=== PATIENT | female | born 2000 | race African-American/Black ===

== ENCOUNTER 2020-09-04 18:12 | Inpatient (IN) | payer BC, OTHER, SELFPAY ==
[2020-09-04] MEDS ORDERED: dexAMETHasone 20 MG/5 ML VIAL IV ONE (18:31)
[2020-09-04] MEDS ORDERED: IPRATROPIUM/ALBUTEROL SULFATE 3 ML AMPUL.NEB IH ONE (18:31)
--- NOTE | 2020-09-04 18:36 | Emergency Department Report ---
ED General Adult HPI - General Chief complaint: Dyspnea/Respdistress Stated complaint: ASTHMA Time Seen by Provider: 09/04/20 18:31 Source: patient Mode of arrival: Ambulatory Limitations: No Limitations - History of Present Illness Initial comments: Patient is a 19-year-old female with history of asthma who presents for cough and shortness of breath x2 days. Patient states she is out of the medication bought [id number] Primatene Mist. Symptoms rated at 5/10 at this time. There has been no fever, chills, dizziness, lightheadedness no chest pain no nausea vomiting. Symptoms are exacerbated by environmental exposure and activity. Symptoms are relieved by nothing. Patient did drive self to ED and ambulated into ED to room. Patient states audible wheezing was triggered to present to ED this evening. - Related Data Previous Rx's Medication Instructions Recorded Last Taken Type EPINEPHrine [Epipen 2-Wilbert] 0.3 mg IJ PRN #1 ml 03/03/14 Unknown Rx Albuterol Sulfate [Ventolin HFA] 2 puff IH Q4H PRN 30 Days 05/10/14 Unknown Rx [email or web address] Albuterol Mdi (or & Nicu Only) 2 puff IH QID PRN #8.5 gram 09/04/20 Unknown Rx [ProAir HFA Inhaler] dexAMETHasone [Decadron] 4 mg PO BID 2 Days #4 tablet 09/04/20 Unknown Rx Allergies Allergy/AdvReac Type Severity Reaction Status Date / Time peanut Allergy Unknown Verified 03/02/14 23:17 ED Review of Systems ROS: Stated complaint: ASTHMA Other details as noted in HPI Constitutional: denies: chills, fever Eyes: denies: eye pain, eye discharge, vision change ENT: congestion. denies: ear pain, throat pain Respiratory: cough, shortness of breath, wheezing Cardiovascular: denies: chest pain, palpitations Endocrine: no symptoms reported Gastrointestinal: denies: abdominal pain, nausea, vomiting, diarrhea Genitourinary: denies: urgency, dysuria, discharge Musculoskeletal: denies: back pain, joint swelling, arthralgia Skin: denies: rash, lesions Neurological: denies: headache, weakness, paresthesias Psychiatric: denies: anxiety, depression Hematological/Lymphatic: denies: easy bleeding, easy bruising ED Past Medical Hx - Past Medical History Previous Medical History?: Yes Hx CVA: No Hx Congestive Heart Failure: No Hx Deep Vein Thrombosis: No Hx Liver Disease: No Hx Renal Disease: No Hx Sickle Cell Disease: No Hx Asthma: Yes - Surgical History Past Surgical History?: No - Social History Smoking Status: Never Smoker Substance Use Type: None - Medications Home Medications: Home Medications Medication Instructions Recorded Confirmed Last Taken Type EPINEPHrine [Epipen 2-Wilbert] 0.3 mg IJ PRN #1 ml 03/03/14 05/10/14 Unknown Rx Albuterol Sulfate [Ventolin HFA] 2 puff IH Q4H PRN 30 Days 05/10/14 Unknown Rx [email or web address] Albuterol Mdi (or & Nicu Only) 2 puff IH QID PRN #8.5 gram 09/04/20 Unknown Rx [ProAir HFA Inhaler] dexAMETHasone [Decadron] 4 mg PO BID 2 Days #4 tablet 09/04/20 Unknown Rx ED Physical Exam - General Limitations: No Limitations General appearance: alert, in no apparent distress - Head Head exam: Present: atraumatic, normocephalic - Eye Eye exam: Present: normal appearance, EOMI Pupils: Present: normal accommodation - ENT ENT exam: Present: normal orophraynx, mucous membranes moist - Neck Neck exam: Present: normal inspection, full ROM. Absent: tenderness, lymphadenopathy - Respiratory Respiratory exam: Present: wheezes, chest wall tenderness (right anterior later al chest wall tenderness , no erythema no crepitus, no stepoff ). Absent: rales, rhonchi, stridor - Expanded Respiratory Exam Expanded Location: Wheezes: Right, Left, Upper - Cardiovascular Cardiovascular Exam: Present: regular rate, normal rhythm. Absent: systolic murmur, diastolic murmur, rubs, gallop - GI/Abdominal GI/Abdominal exam: Present: soft, normal bowel sounds. Absent: distended, tenderness, bruit, hernia - Rectal Rectal exam: Present: deferred - Extremities Exam Extremities exam: Present: normal inspection, full ROM. Absent: tenderness - Back Exam Back exam: Present: normal inspection, full ROM. Absent: tenderness, CVA tenderness (R), CVA tenderness (L) - Neurological Exam Neurological exam: Present: alert, oriented X3, CN II-XII intact, normal gait - Psychiatric Psychiatric exam: Present: normal affect, normal mood - Skin Skin exam: Present: warm, dry, intact, normal color. Absent: rash ED Course Vital Signs 09/04/20 09/04/20 09/04/20 18:24 18:49 20:14 Temperature 98.3 F Pulse Rate 130 H 93 H Pulse Rate [ 121 H Bilateral] Respiratory 20 24 Rate Respiratory 22 Rate [Bilateral ] Blood Pressure 183/112 O2 Sat by Pulse 84 100 Oximetry ED Medical Decision Making - Radiology Data Radiology results: report reviewed, image reviewed Findings Reporting MD: Yan Gorman Dictation Time: September 04, 2020 18:47 Gambreler: Not available Forwarder Operator Date: XR chest 1V ap INDICATION / CLINICAL INFORMATION: sob wheezing productive cough. COMPARISON: None available. FINDINGS: SUPPORT DEVICES: None. HEART /PULMONARY VASCULATURE: No significant abnormality. LUNGS / PLEURA: No significant pulmonary or pleural abnormality. No pneumothorax. ADDITIONAL FINDINGS: No significant additional findings. IMPRESSION: 1. No acute findings. Signer Name: Yan Gorman MD Signed: 09/04/2020 6:47 PM Workstation Name: [id number] - Medical Decision Making Chest x-ray no infiltrates no opacities, wheezing is resolved, symptoms improved with medications given in ED. Patient is ambulatory from room to bathroom back to room without increased shortness of breath or wheezing. Patient states breathing is at baseline at this time. Plan refill albuterol, prednisone, DC to home follow-up with PCP in 2 to 3 days. Pt verbalized agreement and understanding of discharge plan. Critical care attestation.: If time is entered above; I have spent that time in minutes in the direct care of this critically ill patient, excluding procedure time. ED Disposition Clinical Impression: Asthma Qualifiers: Asthma severity: moderate Asthma persistence: unspecified Asthma complication type: uncomplicated Qualified Code(s): J45.909 - Unspecified asthma, uncomplicated Disposition: DC-01 TO HOME OR SELFCARE Is pt being admited?: No Does the pt Need Aspirin: No Condition: Stable Instructions: Asthma, Adult, Asthma (ED) Prescriptions: dexAMETHasone [Decadron] 4 mg PO BID 2 Days #4 tablet Albuterol Mdi (or & Nicu Only) [ProAir HFA Inhaler] 2 puff IH QID PRN #8.5 gram PRN Reason: Shortness Of Breath Referrals: VINITA CONNELL MD [Staff Physician] - 3-5 Days Forms: Work/School Release Form(ED) Time of Disposition: 21:14
[2020-09-04] MEDS ORDERED: ALBUTEROL 2.5 MG/3 ML NEBU IH ONE ×2 (19:48)
[2020-09-04] MEDS ORDERED: ACETAMINOPHEN W/CODEINE 300-30 MG TAB PO ONE (19:48)
--- NOTE | 2020-09-04 19:52 | XRay Report ---
XR chest 1V ap INDICATION / CLINICAL INFORMATION: sob wheezing productive cough. COMPARISON: None available. FINDINGS: SUPPORT DEVICES: None. HEART /PULMONARY VASCULATURE: No significant abnormality. LUNGS / PLEURA: No significant pulmonary or pleural abnormality. No pneumothorax. ADDITIONAL FINDINGS: No significant additional findings. IMPRESSION: 1. No acute findings. Signer Name: Yan Gorman MD Signed: 09/04/2020 7:47 PM Workstation Name: [id number]
[2020-09-04] MEDS ORDERED: SODIUM CHLORIDE 0.9% 1000 ML 1,000 ML IV ONE (22:28)
[2020-09-04] MEDS ORDERED: cefTRIAXone/NS 1 GM/50 ML 1 GM/50 ML BAG IV ONE (22:28)
[2020-09-04] MEDS ORDERED: MAGNESIUM SULFATE 2 GM/50 ML BAG IV ONE (22:32)
--- NOTE | 2020-09-04 22:45 | Emergency Department Report ---
ED General Adult HPI - General Chief complaint: Dyspnea/Respdistress Stated complaint: ASTHMA Time Seen by Provider: 09/04/20 18:31 Source: patient Mode of arrival: Ambulatory Limitations: No Limitations - History of Present Illness Initial comments: Patient is a 19-year-old female with history of asthma who presents for cough and shortness of breath x2 days. Patient states she is out of the medication bought [id number] Primatene Mist. Symptoms rated at 5/10 at this time. There has been no fever, chills, dizziness, lightheadedness no chest pain no nausea vomiting. Symptoms are exacerbated by environmental exposure and activity. Symptoms are relieved by nothing. Patient did drive self to ED and ambulated into ED to room. Patient states audible wheezing was triggered to present to ED this evening. Severity scale (0 -10): 3 - Related Data Previous Rx's Medication Instructions Recorded Last Taken Type EPINEPHrine [Epipen 2-Wilbert] 0.3 mg IJ PRN #1 ml 03/03/14 Unknown Rx Albuterol Sulfate [Ventolin HFA] 2 puff IH Q4H PRN 30 Days 05/10/14 Unknown Rx [email or web address].ad Allergies Allergy/AdvReac Type Severity Reaction Status Date / Time peanut Allergy Unknown Verified 03/02/14 23:17 ED Review of Systems ROS: Stated complaint: ASTHMA Other details as noted in HPI Constitutional: denies: chills, fever Eyes: denies: eye pain, eye discharge, vision change ENT: congestion. denies: ear pain, throat pain Respiratory: cough, shortness of breath, wheezing. denies: stridor Cardiovascular: denies: chest pain, palpitations Endocrine: no symptoms reported Gastrointestinal: denies: abdominal pain, nausea, vomiting, diarrhea Genitourinary: denies: urgency, dysuria, discharge Musculoskeletal: denies: back pain, joint swelling, arthralgia Skin: denies: rash, lesions Neurological: denies: headache, weakness, paresthesias Psychiatric: denies: anxiety, depression Hematological/Lymphatic: denies: easy bleeding, easy bruising ED Past Medical Hx - Past Medical History Previous Medical History?: Yes Hx CVA: No Hx Congestive Heart Failure: No Hx Deep Vein Thrombosis: No Hx Liver Disease: No Hx Renal Disease: No Hx Sickle Cell Disease: No Hx Asthma: Yes - Surgical History Past Surgical History?: No - Social History Smoking Status: Never Smoker Substance Use Type: None - Medications Home Medications: Home Medications Medication Instructions Recorded Confirmed Last Taken Type EPINEPHrine [Epipen 2-Wilbert] 0.3 mg IJ PRN #1 ml 03/03/14 05/10/14 Unknown Rx Albuterol Sulfate [Ventolin HFA] 2 puff IH Q4H PRN 30 Days 05/10/14 Unknown Rx hfa.[email or web address].ad ED Physical Exam - General Limitations: No Limitations General appearance: alert, in no apparent distress - Head Head exam: Present: atraumatic, normocephalic - Eye Eye exam: Present: normal appearance, EOMI Pupils: Present: normal accommodation - ENT ENT exam: Present: normal orophraynx, mucous membranes moist - Neck Neck exam: Present: normal inspection, full ROM. Absent: tenderness - Respiratory Respiratory exam: Present: wheezes, chest wall tenderness. Absent: respiratory distress, rales, rhonchi, stridor - Cardiovascular Cardiovascular Exam: Present: normal rhythm, tachycardia, normal heart sounds. Absent: systolic murmur, diastolic murmur, rubs, gallop - GI/Abdominal GI/Abdominal exam: Present: soft, normal bowel sounds. Absent: distended, tenderness, guarding, rebound, rigid, bruit, hernia - Rectal Rectal exam: Present: deferred - Extremities Exam Extremities exam: Present: normal inspection, full ROM, normal capillary refill. Absent: tenderness - Back Exam Back exam: Present: normal inspection, full ROM. Absent: tenderness, CVA tenderness (R), CVA tenderness (L) - Neurological Exam Neurological exam: Present: alert, oriented X3, CN II-XII intact, normal gait, reflexes normal - Expanded Neurological Exam Expanded Patient oriented to: Present: person, place, time Motor strength exam: RUE: 5, LUE: 5, RLE: 5, LLE: 5 Best Eye Response (Fox): (4) open spontaneously Best Motor Response ([place]): (6) obeys commands Best Verbal Response ([place]): (5) oriented [place] Total: 15 - Psychiatric Psychiatric exam: Present: normal affect - Skin Skin exam: Present: warm, dry, intact, normal color. Absent: rash ED Course Vital Signs 09/04/20 09/04/20 09/04/20 18:24 18:49 20:14 Temperature 98.3 F Pulse Rate 130 H 93 H Pulse Rate [ 121 H Bilateral] Respiratory 20 24 Rate Respiratory 22 Rate [Bilateral ] Blood Pressure 183/112 O2 Sat by Pulse 84 100 Oximetry 09/04/20 22:17 Temperature Pulse Rate 114 H Pulse Rate [ Bilateral] Respiratory 24 Rate Respiratory Rate [Bilateral ] Blood Pressure O2 Sat by Pulse 95 Oximetry ED Medical Decision Making - Lab Data Result diagrams: 09/04/20 22:34 09/04/20 22:34 Labs 09/04/20 09/04/20 09/04/20 22:34 22:34 22:34 WBC 16.2 H RBC 4.98 Hgb 14.6 H Hct 43.8 H MCV 88 MCH 29 MCHC 33 RDW 13.6 Plt Count 317 Lymph % (Auto) 7.8 L [place] % (Auto) 1.9 Eos % (Auto) 0.6 Baso % (Auto) 0.3 Lymph # (Auto) 1.3 [place] # (Auto) 0.3 Eos # (Auto) 0.1 Baso # (Auto) 0.0 Seg Neutrophils % 89.4 H Seg Neutrophils # 14.5 H D-Dimer 98.05 Sodium 138 Potassium 4.1 Chloride 98.2 Carbon Dioxide 24 Anion Gap 20 BUN 8 Creatinine 0.6 Estimated GFR > 60 BUN/Creatinine Ratio 13 Glucose 181 H Lactic Acid Calcium 9.4 Total Bilirubin 0.40 AST 24 ALT 36 Alkaline Phosphatase 101 Total Protein 8.2 Albumin 4.4 Albumin/Globulin Ratio 1.2 Urine Color Urine Turbidity Urine pH Ur Specific [place] Urine Protein Urine Glucose (UA) Urine Ketones Urine Blood Urine Nitrite Urine Bilirubin Urine Urobilinogen Ur Leukocyte Esterase Urine WBC (Auto) Urine RBC (Auto) U Epithel Cells (Auto) Urine Mucus Urine HCG, Qual 09/04/20 09/04/20 22:34 23:02 WBC RBC Hgb Hct MCV MCH MCHC RDW Plt Count Lymph % (Auto) [place] % (Auto) Eos % (Auto) Baso % (Auto) Lymph # (Auto) [place] # (Auto) Eos # (Auto) Baso # (Auto) Seg Neutrophils % Seg Neutrophils # D-Dimer Sodium Potassium Chloride Carbon Dioxide Anion Gap BUN Creatinine Estimated GFR BUN/Creatinine Ratio Glucose Lactic Acid 4.50 H* Calcium Total Bilirubin AST ALT Alkaline Phosphatase Total Protein Albumin Albumin/Globulin Ratio Urine Color Yellow Urine Turbidity Clear Urine pH 6.0 Ur Specific [place] 1.029 Urine Protein 30 mg/dl Urine Glucose (UA) Neg Urine Ketones Tr Urine Blood Neg Urine Nitrite Neg Urine Bilirubin Neg Urine Urobilinogen < 2.0 Ur Leukocyte Esterase Sm Urine WBC (Auto) 11.0 H Urine RBC (Auto) 4.0 U Epithel Cells (Auto) 6.0 Urine Mucus 2+ Urine HCG, Qual Negative - Radiology Data Radiology results: report reviewed, image reviewed Findings Reporting MD: Yan Gorman Dictation Time: September 04, 2020 18:47 Tra nscriptionist: Not available Fumigator And Sterilizer Date: XR chest 1V ap INDICATION / CLINICAL INFORMATION: sob wheezing productive cough. COMPARISON: None available. FINDINGS: SUPPORT DEVICES: None. HEART /PULMONARY VASCULATURE: No significant abnormality. LUNGS / PLEURA: No significant pulmonary or pleural abnormality. No pneumothorax. ADDITIONAL FINDINGS: No significant additional findings. IMPRESSION: 1. No acute findings. Signer Name: Yan Gorman MD Signed: 09/04/2020 6:47 PM Workstation Name: [id number] Findings Reporting MD: Chaz Amaral Dictation Time: September 05, 2020 00:19 Senior Managing Director: Not available Fumigator And Sterilizer Date: CTA chest with contrast INDICATION : P.E. PROTOCOL!!! Pt complains of shortness of breath. TECHNIQUE: Axial imaging performed through the chest, with contrast bolus timing set to maximize opacification of the pulmonary arteries. 3-plane MIP reformatted images were obtained. All CT scans at this location are performed using CT dose reduction for ALARA by means of automated exposure control. 100 mL of intravenous contrast administered. COMPARISON: FINDINGS: Bolus: Poor contrast bolus timing. PTE: No obvious central filling defect. Remaining branches are poorly evaluated given bolus timing. Mediastinum: Heart and great vessels appear normal. No pathologic mediastinal adenopathy. Lungs: There is streaky airspace disease in the lung bases, medial right middle lobe, and right greater than left upper lobes. No pleural effusion. Upper abdomen: Limited imaging of the upper abdomen shows nothing acute. Bones: No acute osseous abnormality. IMPRESSION: 1. Poor contrast bolus timing as outlined above with no large central PTE. 2. Multifocal streaky airspace disease is nonspecific but could be seen with an atypical infectious/inflammatory etiology. No pleural effusion. Signer Name: Chaz Amaral MD Signed: 09/05/2020 12:19 AM Workstation Name: [id number] - Medical Decision Making Chest x-ray no infiltrates no opacities, wheezing persistant, O2 sat is 89% room air, 98 % with 2 L/NC, medications given in ED: jody neb x 2, Albuterol, de cadron, magnesium, rocephin, NS x 1 liter, Patient is ambulatory from room to bathroom back to room with increased shortness of breath or wheezing. Patient states breathing is much improved at this time, however O2 sat is not improved, D-Dimer 95, WBC: 16.3, Lactic Acid is 4.5, lungs sounds bilat exp wheezes, Plan: consult hospitalist for admission Dx: Asthma Exacerbation, Recomendation CTA Chest r/o PE, Covid 19, will call back after result for admission or dispositions. Discussed tx plan with patient, although she previously declined admission, she is will to stay for tx at this time. 1241: CTA Chest : 1. Poor contrast bolus timing as outlined above with no large central PTE. 2. Multifocal streaky airspace disease is nonspecific but could be seen with an atypical infectious/inflammatory etiology. No pleural effusion. Plan: admit to hospitalist, Dx. Bilat Pnuemonia, Asthma e xacerbation, Lactic Acidosis, suspected COVID 19, discussed tx plan with patient , patient verbalized agreement and understanding of same. Critical care attestation.: If time is entered above; I have spent that time in minutes in the direct care of this critically ill patient, excluding procedure time. ED Disposition Clinical Impression: Lactic acidosis, Suspected COVID-19 virus infection Asthma Qualifiers: Asthma severity: moderate Asthma persistence: unspecified Asthma complication type: uncomplicated Qualified Code(s): J45.909 - Unspecified asthma, uncomplicated Pneumonia of both lower lobes Qualifiers: Pneumonia type: due to unspecified organism Qualified Code(s): J18.9 - Pneumonia, unspecified organism Disposition: OP ADMIT IP TO THIS HOSP Is pt being admited?: Yes Does the pt Need Aspirin: No Condition: Stable Instructions: Asthma, Adult, Asthma (ED), Bacterial Pneumonia (ED)
[2020-09-04 23:12] LABS: Basophils % (Auto) 0.3 % (0.0-1.8); Eosinophils # (Auto) 0.1 K/mm3 (0.0-0.4); Eosinophils % (Auto) 0.6 % (0.0-4.3); Hematocrit 43.8 % (30.3-42.9); Hemoglobin 14.6 gm/dl (10.1-14.3); Lymphocytes # (Auto) 1.3 K/mm3 (1.2-5.4); Lymphocytes % (Auto) 7.8 % (13.4-35.0); Mean Corpuscular HGB Conc 33 % (30-34); Mean Corpuscular Volume 88 fl (79-97); Monocytes # (Auto) 0.3 K/mm3 (0.0-0.8); Monocytes % (Auto) 1.9 % (0.0-7.3); Platelet Count 317 K/mm3 (140-440); Red Blood Count 4.98 M/mm3 (3.65-5.03); Red Cell Distribution Width 13.6 % (13.2-15.2)
[2020-09-04 23:36] LABS: Bilirubin,Urine NEG (Negative); Blood,Urine NEG (Negative); Color,Urine Yellow (Yellow); Mucus,Urine 2+ /HPF; Urobilinogen,Urine < 2.0 mg/dL (<2.0)
[2020-09-04 23:42] LABS: HCG Qualitative,Urine Negative (Negative)
[2020-09-04 23:50] LABS: Alanine Aminotransferase 36 units/L (7-56); Albumin 4.4 g/dL (3.9-5); Blood Urea Nitrogen 8 mg/dL (7-17); Calcium 9.4 mg/dL (8.4-10.2); Hemolysis Index 13
[2020-09-04 23:54] LABS: BUN/Creatinine Ratio 13
[2020-09-05] MEDS ORDERED: IPRATROPIUM/ALBUTEROL SULFATE 3 ML AMPUL.NEB IH ONE ×4 (00:07→20:24)
--- NOTE | 2020-09-05 01:24 | Cat Scan Report ---
CTA chest with contrast INDICATION : P.E. PROTOCOL!!! Pt complains of shortness of breath. TECHNIQUE: Axial imaging performed through the chest, with contrast bolus timing set to maximize opa cification of the pulmonary arteries. 3-plane MIP reformatted images were obtained. All CT scans at this location are performed using CT dose reduction for ALARA by means of automated exposure control. 100 mL of intravenous contrast administered. COMPARISON: FINDINGS: Bolus: Poor contrast bolus timing. PTE: No obvious central filling defect. Remaining branches are poorly evaluated given bolus timing. Mediastinum: Heart and great vessels appear normal. No pathologic mediastinal adenopathy. Lungs: There is streaky airspace disease in the lung bases, medial right middle lobe, and right grea ter than left upper lobes. No pleural effusion. Upper abdomen: Limited imaging of the upper abdomen shows nothing acute. Bones: No acute osseous abnormality. IMPRESSION: 1. Poor contrast bolus timing as outlined above with no large central PTE. 2. Multifocal streaky airspace disease is nonspecific but could be seen with an atypical infectious/i nflammatory etiology. No pleural effusion. Signer Name: Chaz Amaral MD Signed: 09/05/2020 1:19 AM Workstation Name: [id number]
[2020-09-05] MEDS ORDERED: ONDANSETRON 4 MG/2 ML INJ IV PRN (02:52)
[2020-09-05] MEDS ORDERED: MAGNESIUM HYDROXIDE (MOM) ORAL LIQD UDC PO PRN (02:52)
[2020-09-05] MEDS ORDERED: ACETAMINOPHEN 325 MG TAB PO PRN (02:52)
[2020-09-05] MEDS ORDERED: MORPHINE 2 MG/1 ML INJ IV PRN (02:52)
--- NOTE | 2020-09-05 03:02 | History and Physical Report ---
History of Present Illness Date of examination: 09/05/20 Date of admission: 09/05/20 02:35 Chief complaint: Shortness of Breath History of present illness: 19-year-old female with known history of asthma presenting to the emergency room today complaining of cough and shortness of breath which has been ongoing for about 2 days. 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 She however denies any sick contacts and no recent travel. Patient denies any fever or chills, no headache or dizziness, no chest pain, no nausea or vomiting. Upon arrival in the emergency room patient had audible wheezing and was in mild respiratory distress. She has had multiple rounds of nebulizing treatments wi thout any significant improvement. Work-up in the emergency room reveals lactic acidosis, leukocytosis, chest x-ray was concerning for a pneumonia. Patient started on empiric IV antibiotics and also placed on isolation precautions to rule out COVID-19. Past History Past Medical History: other (Asthma) Past Surgical History: No surgical history Social history: no significant social history Family history: no significant family history Medications and Allergies Allergies Allergy/AdvReac Type Severity Reaction Status Date / Time peanut Allergy Unknown Verified 03/02/14 23:17 Home Medications Medication Instructions Recorded Confirmed Last Taken Type EPINEPHrine [Epipen 2-Wilbert] 0.3 mg IJ PRN #1 ml 03/03/14 05/10/14 Unknown Rx Albuterol Sulfate [Ventolin HFA] 2 puff IH Q4H PRN 30 Days 05/10/14 Unknown Rx [email or web address] Active Meds: Active Medications Acetaminophen (Tylenol) 650 mg PO Q4H PRN PRN Reason: Pain MILD(1-3)/Fever >100.5/SHAH Albuterol/Ipratropium (Duoneb *Not For Prn Use*) 1 ampul IH Q6HRT DELMY Enoxaparin Sodium (Enoxaparin) 40 mg SUB-Q QDAY@2200 DELMY; Protocol Sodium Chloride (Nacl 0.9% 1000 Ml) 1,000 mls @ 100 mls/hr IV DIRECT DELMY Ceftriaxone Sodium (Rocephin/Ns 2 Gm/100 Ml) 2 gm in 100 mls @ 200 mls/hr IV Q24HR DELMY; Protocol Azithromycin 500 mg/ Sodium (Chloride) 250 mls @ 250 mls/hr IV Q24HR DELMY; Protocol Magnesium Hydroxide (Milk Of Magnesia) 30 ml PO Q4H PRN PRN Reason: Constipation Methylprednisolone Sodium Succinate (Solu-Medrol) 40 mg IV Q8HR DELMY Morphine Sulfate (Morphine) 2 mg IV Q4H PRN PRN Reason: Pain, Moderate (4-6) Ondansetron HCl (Zofran) 4 mg IV Q8H PRN PRN Reason: Nausea And Vomiting Sodium Chloride (Sodium Chloride Flush Syringe 10 Ml) 10 ml IV BID DELMY Sodium Chloride (Sodium Chloride Flush Syringe 10 Ml) 10 ml IV PRN PRN PRN Reason: LINE FLUSH Review of Systems Constitutional: no fever, no chills Ears, nose, mouth and throat: no nasal congestion, no sore throat Cardiovascular: no chest pain, no palpitations Respiratory: cough, cough with sputum, shortness of breath, wheezing Gastrointestinal: no abdominal pain, no nausea, no vomiting, no diarrhea Genitourinary Female: no pelvic pain, no flank pain, no dysuria, no hematuria, no nocturia Musculoskeletal: no neck pain, no low back pain Integumentary: no rash, no pruritis Neurological: no headaches, no confusion Psychiatric: no anxiety, no depression Exam - Constitutional Vitals: Temp Pulse Resp BP Pulse Ox 98.3 F 114 H 24 183/112 95 09/04/20 18:24 09/04/20 22:17 09/04/20 22:17 09/04/20 18:24 09/04/20 22:17 General appearance: Present: no acute distress, well-nourished, obese - EENT Eyes: Present: PERRL, EOM intact. Absent: scleral icterus ENT: hearing intact, clear oral mucosa, dentition normal - Neck Neck: Present: supple, normal ROM - Respiratory Respiratory effort: normal Respiratory: bilateral: wheezing - Cardiovascular Rhythm: regular Heart Sounds: Present: S1 & S2. Absent: gallop, systolic murmur, diastolic murmur, rub - Extremities Extremities: no ischemia, pulses intact, pulses symmetrical, No edema, Full ROM Peripheral Pulses: within normal limits - Abdominal General gastrointestinal: Present: soft, non-tender, non-distended, normal bowel sounds. Absent: mass - Integumentary Integumentary: Present: clear, warm, dry - Musculoskeletal Musculoskeletal: strength equal bilaterally - Psychiatric Psychiatric: appropriate mood/affect, intact judgment & insight, memory intact - Neurologic Neurologic: CNII-XII intact, no focal deficits, moves all extremities Results - Labs CBC & Chem 7: 09/04/20 22:34 09/04/20 22:34 Labs: Abnormal lab results 09/04/20 09/04/20 09/04/20 Range/Units 22:34 22:34 22:34 WBC 16.2 H (4.5-11.0) K/mm3 Hgb 14.6 H (10.1-14.3) gm/dl Hct 43.8 H (30.3-42.9) % Lymph % (Auto) 7.8 L (13.4-35.0) % Seg Neutrophils % 89.4 H (40.0-70.0) % Seg Neutrophils # 14.5 H (1.8-7.7) K/mm3 Glucose 181 H (65-100) mg/dL Lactic Acid 4.50 H* (0.7-2.0) mmol/L Urine WBC (Auto) (0.0-6.0) /HPF 09/04/20 09/05/20 Range/Units 23:02 00:15 WBC (4.5-11.0) K/mm3 Hgb (10.1-14.3) gm/dl Hct (30.3-42.9) % Lymph % (Auto) (13.4-35.0) % Seg Neutrophils % (40.0-70.0) % Seg Neutrophils # (1.8-7.7) K/mm3 Glucose (65-100) mg/dL Lactic Acid 4.70 H* (0.7-2.0) mmol/L Urine WBC (Auto) 11.0 H (0.0-6.0) /HPF Assessment and Plan - Patient Problems (1) Asthma Current Visit: Yes Status: Acute Qualifiers: Asthma severity: moderate Asthma persistence: unspecified Asthma complication type: uncomplicated Qualified Code(s): J45.909 - Unspecified asthma, uncomplicated Plan to address problem: Patient placed on nebulizing treatments and IV steroid. (2) Morbid obesity with BMI of 50.0-59.9, adult Current Visit: Yes Status: Acute Plan to address problem: We will place dietary consult. (3) Pneumonia of both lower lobes Current Visit: Yes Status: Acute Qualifiers: Pneumonia type: due to unspecified organism Qualified Code(s): J18.9 - Pneumonia, unspecified organism Plan to address problem: She was placed on empiric IV antibiotics. She is also placed on isolation precautions to rule out COVID-19. (4) Lactic acidosis Current Visit: Yes Status: Acute Plan to address problem: Possibly secondary to the underlying infection. (5) Suspected COVID-19 virus infection Current Visit: Yes Status: Acute Plan to address problem: Patient placed on isolation precautions. We will place consult to infectious disease for evaluation and recommendation. We await COVID-19 testing. (6) DVT prophylaxis Current Visit: Yes Status: Acute Plan to address problem: Placed on subcutaneous Lovenox. (7) Full code status Current Visit: Yes Status: Acute
[2020-09-05] MEDS ORDERED: methylPREDNISolone Sod Succinate 40 MG/1 ML INJ ONE ×2 (07:03→16:17)
[2020-09-05] MEDS: methylPREDNISolone Sod Succinate 40 MG/1 ML INJ IV SCH ×3 (07:12→22:54)
[2020-09-05] MEDS ORDERED: AZITHROMYCIN 500 MG in SODIUM CHLORIDE 0.9% 250ML 250 ML IV SCH (10:00)
[2020-09-05] MEDS: IPRATROPIUM/ALBUTEROL SULFATE 3 ML AMPUL.NEB IH SCH ×3 (11:10→20:27)
[2020-09-05] MEDS ORDERED: cefTRIAXone/NS 2 GM/100 ML 2 GM/100 ML BAG IV ONE (11:44)
[2020-09-05] MEDS: cefTRIAXone/NS 2 GM/100 ML 2 GM/100 ML BAG IV SCH (11:49)
--- NOTE | 2020-09-05 15:34 | Consultation ---
History of Present Illness - Reason for Consult Consult date: 09/05/20 - History of Present Illness 19-year-old female past medical history asthma, morbid obesity presented to the hospital today complaining of cough and shortness of breath. She notes began approximately 2 days prior to admission, and was nonresponsive to [id number] cough medicine. 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 She otherwise denies any symptoms. Afebrile since admission with a white count of 16. Currently on ceftriaxone azithromycin. Covid testing negative. Imaging personally reviewed: Chest CTA: Multifocal airspace disease. Review of Systems: Bold if positive, otherwise negative General: fevers, chills, rigors HEENT: visual disturbance, diplopia, eye pain Respiratory: cough, sputum, hemoptysis, shortness of breath Cardiovascular: chest pain, syncope Gastrointestinal: nausea, vomiting, diarrhea, abdominal pain Genitourinary: dysuria, hematuria, flank pain Musculoskeletal: neck pain, back pain, joint pain, edema Neurologic: headaches, seizures Hematologic: easy bruising or bleeding Endocrine: night sweats, acute weight loss Skin: rash, jaundice, redness Psychiatric: suicidal, homicidal ideation Past History Past Medical History: other (Asthma) Past Surgical History: No surgical history Social history: no significant social history Family history: no significant family history Medications and Allergies Allergies Allergy/AdvReac Type Severity Reaction Status Date / Time peanut Allergy Unknown Verified 03/02/14 23:17 Home Medications Medication Instructions Recorded Confirmed Last Taken Type EPINEPHrine [Epipen 2-Wilbert] 0.3 mg IJ PRN #1 ml 03/03/14 05/10/14 Unknown Rx Albuterol Sulfate [Ventolin HFA] 2 puff IH Q4H PRN 30 Days 05/10/14 Unknown Rx [email or web address] Active Meds: Active Medications Acetaminophen (Tylenol) 650 mg PO Q4H PRN PRN Reason: Pain MILD(1-3)/Fever >100.5/SHAH Albuterol/Ipratropium (Duoneb *Not For Prn Use*) 1 ampul IH Q6HRT [facility] Last Admin: 09/05/20 11:10 Dose: 1 ampul Documented by: Enoxaparin Sodium (Enoxaparin) 40 mg SUB-Q QDAY@2200 DELMY; Protocol Sodium Chloride (Nacl 0.9% 1000 Ml) 1,000 mls @ 100 mls/hr IV DIRECT DELMY Ceftriaxone Sodium (Rocephin/Ns 2 Gm/100 Ml) 2 gm in 100 mls @ 200 mls/hr IV Q24HR [facility]; Protocol Last Admin: 09/05/20 11:49 Dose: 200 mls/hr Documented by: Azithromycin 500 mg/ Sodium (Chloride) 250 mls @ 250 mls/hr IV Q24HR [facility]; Protocol Stop: 09/09/20 10:59 Last Admin: 09/05/20 14:11 Dose: 250 mls/hr Documented by: Magnesium Hydroxide (Milk Of Magnesia) 30 ml PO Q4H PRN PRN Reason: Constipation Methylprednisolone Sodium Succinate (Solu-Medrol) 40 mg IV Q8HR [facility] Last Admin: 09/05/20 07:12 Dose: 40 mg Documented by: Morphine Sulfate (Morphine) 2 mg IV Q4H PRN PRN Reason: Pain, Moderate (4-6) Ondansetron HCl (Zofran) 4 mg IV Q8H PRN PRN Reason: Nausea And Vomiting Sodium Chloride (Sodium Chloride Flush Syringe 10 Ml) 10 ml IV BID [facility] Last Admin: 09/05/20 11:54 Dose: 10 ml Documented by: Sodium Chloride (Sodium Chloride Flush Syringe 10 Ml) 10 ml IV PRN PRN PRN Reason: LINE FLUSH Last Admin: 09/05/20 14:10 Dose: 10 ml Documented by: Physical Examination - Physical Exam Narrative exam: Physical Exam: Constitutional: Alert, cooperative. Mild respiratory distress, morbidly obese. Head, Ears, Nose: Normocephalic, atraumatic. External ears, nose normal Eyes: Conjunctivae/corneas clear. No icterus. No ptosis. Neck: Supple, no meningeal signs Oral: dentition fair, no thrush Cardiovascular: S1, S2 normal. Respiratory: Good air entry, clear to auscultation bilaterally GI: Soft, non-tender; bowel sounds normal. No peritoneal signs. Musculoskeletal: No pedal edema, no cyanosis. Skin: No rash or abscess Hem/Lymphatic: No palpable cervical or supraclavicular nodes. No lymphangitis Psych: Mood ok. Affect normal Neurological: Awake, alert, oriented. No gross abnormality - Constitutional Vitals: Vital Signs Temp Pulse Resp BP Pulse Ox 98.3 F 113 H 18 183/112 95 09/04/20 18:24 09/05/20 11:12 09/05/20 11:12 09/04/20 18:24 09/04/20 22:17 Temperature -Last 24 Hours Temperature 98.3 F Results - Labs CBC & Chem 7: 09/04/20 22:34 09/04/20 22:34 Labs: Abnormal lab results 09/04/20 09/04/20 09/04/20 Range/Units 22:34 22:34 22:34 WBC 16.2 H (4.5-11.0) K/mm3 Hgb 14.6 H (10.1-14.3) gm/dl Hct 43.8 H (30.3-42.9) % Lymph % (Auto) 7.8 L (13.4-35.0) % Seg Neutrophils % 89.4 H (40.0-70.0) % Seg Neutrophils # 14.5 H (1.8-7.7) K/mm3 Glucose 181 H (65-100) mg/dL Lactic Acid 4.50 H* (0.7-2.0) mmol/L Urine WBC (Auto) (0.0-6.0) /HPF 09/04/20 09/05/20 09/05/20 Range/Units 23:02 00:15 04:28 WBC (4.5-11.0) K/mm3 Hgb (10.1-14.3) gm/dl Hct (30.3-42.9) % Lymph % (Auto) (13.4-35.0) % Seg Neutrophils % (40.0-70.0) % Seg Neutrophils # (1.8-7.7) K/mm3 Glucose (65-100) mg/dL Lactic Acid 4.70 H* 2.70 H* (0.7-2.0) mmol/L Urine WBC (Auto) 11.0 H (0.0-6.0) /HPF Assessment and Plan Cultures: COVID-19 negative A/P: 19-year-old female past medical history morbid obesity, asthma admitted as Covid PUI, found to have multifocal pneumonia #Multifocal pneumonia: Covid testing negative, elevated white count. Concern for bacterial pneumonia. Follow-up procalcitonin, continue antibiotics. #Morbid obesity #Asthma: Steroids per primary Recs: -Continue ceftriaxone azithromycin for now -Follow-up procalcitonin Thank you for the consult, we will continue to follow. George Talavera MD [facility] ([facility]) O: [phone] F: [phone]
--- NOTE | 2020-09-05 16:35 | Event Note ---
Date: 09/05/20 --COVID-19 test negative Patient was admitted early this morning with worsening shortness of breath, bronchial asthma exacerbation PUI, COVID-19 test negative, continue oxygen titrate O2 sats to more than 90%, nebulizers Steroids, antibiotics and supportive care, ID evaluation noted and appreciated Possible discharge in 1 to 2 days if stable Medical records reviewed, I have examined the patient at the bedside Agree with the current management
[2020-09-05] MEDS: ENOXAPARIN 40 MG/0.4 ML INJ SUB-Q SCH (22:54)
[2020-09-05] MEDS: SODIUM CHLORIDE 0.9% 1000 ML 1,000 ML IV SCH (22:55)
[2020-09-06] MEDS: methylPREDNISolone Sod Succinate 40 MG/1 ML INJ IV SCH ×3 (05:49→21:41)
[2020-09-06] MEDS: SODIUM CHLORIDE 0.9% 1000 ML 1,000 ML IV SCH ×2 (05:49→21:41)
[2020-09-06 06:50] LABS: Hematocrit 42.7 % (30.3-42.9); Lymphocytes # (Auto) 1.5 K/mm3 (1.2-5.4); Lymphocytes % (Auto) 8.8 % (13.4-35.0); Mean Corpuscular HGB Conc 33 % (30-34); Mean Corpuscular Volume 88 fl (79-97); Monocytes # (Auto) 0.7 K/mm3 (0.0-0.8); Monocytes % (Auto) 4.2 % (0.0-7.3); Platelet Count 331 K/mm3 (140-440); Red Blood Count 4.88 M/mm3 (3.65-5.03); Red Cell Distribution Width 13.4 % (13.2-15.2)
[2020-09-06] MEDS: IPRATROPIUM/ALBUTEROL SULFATE 3 ML AMPUL.NEB IH SCH ×4 (07:10→21:00)
[2020-09-06 07:13] LABS: INR 1.04 (0.87-1.13)
[2020-09-06 07:18] LABS: Blood Urea Nitrogen 9 mg/dL (7-17); Calcium 9.3 mg/dL (8.4-10.2); Hemolysis Index 2
--- NOTE | 2020-09-06 07:55 | Progress Note ---
Assessment and Plan Assessment and plan: --PUI; COVID-19 test negative --Acute asthma exacerbation Current Visit: Yes Status: Acute Plan to address problem: Oxygen titrate O2 sats to more than 90% , nebulizers IV steroids , IV antibiotics , supportive care --Multifocal pneumonia ; present on admission Current Visit: Yes Status: Acute Plan to address problem: Continue empiric IV antibiotics. Follow cultures COVID-19 test negative --Lactic acidosis Current Visit: Yes Status: Acute Plan to address problem: Possibly secondary to the underlying infection. Closely monitor, treat the underlying cause -- Morbid obesity with BMI of 50.0-59.9, adult Current Visit: Yes Status: Acute Plan to address problem: Patient needs dietary modification Exercise as tolerated and weight reduction When medically stable -- DVT prophylaxis Current Visit: Yes Status: Acute Plan to address problem: Placed on subcutaneous Lovenox. --Full code status Current Visit: Yes Status: Acute Closely monitor the patient and adjust management as needed Ambulate as tolerated Evaluate for home oxygen Discharge home tomorrow if stable History Interval history: Patient was admitted with acute asthma exacerbation and possible multifocal pneumonia and lactic acidosis For some unknown reason on the chart patient shows discharged And all the orders were canceled Patient feels slightly better still has some shortness of breath Vital signs reviewed Hospitalist Physical - Constitutional Vitals: Temp Pulse Resp BP Pulse Ox 98.2 F 87 20 171/94 93 09/06/20 05:19 09/06/20 05:19 09/06/20 05:19 09/06/20 05:19 09/06/20 05:19 General appearance: Present: no acute distress, well-nourished, obese (Morbidly obese) - EENT Eyes: Present: PERRL, EOM intact - Neck Neck: Present: supple, normal ROM - Respiratory Respiratory effort: normal Respiratory: bilateral: diminished, rhonchi, negative: rales, wheezing - Cardiovascular Rhythm: regular Heart Sounds: Present: S1 & S2 - Extremities Extremities: no ischemia, No edema - Abdominal General gastrointestinal: soft, non-tender, non-distended, normal bowel sounds - Integumentary Integumentary: Present: clear, warm - Psychiatric Psychiatric: appropriate mood/affect, cooperative - Neurologic Neurologic: CNII-XII intact, moves all extremities Results - Labs CBC & Chem 7: 09/06/20 04:58 09/06/20 04:58 Labs: Laboratory Last Values WBC 17.4 K/mm3 (4.5-11.0) H 09/06/20 04:58 RBC 4.88 M/mm3 (3.65-5.03) 09/06/20 04:58 Hgb 14.0 gm/dl (10.1-14.3) 09/06/20 04:58 Hct 42.7 % (30.3-42.9) 09/06/20 04:58 MCV 88 fl (79-97) 09/06/20 04:58 MCH 29 pg (28-32) 09/06/20 04:58 MCHC 33 % (30-34) 09/06/20 04:58 RDW 13.4 % (13.2-15.2) 09/06/20 04:58 Plt Count 331 K/mm3 (140-440) 09/06/20 04:58 Lymph % (Auto) 8.8 % (13.4-35.0) L 09/06/20 04:58 [place] % (Auto) 4.2 % (0.0-7.3) 09/06/20 04:58 Eos % (Auto) 0.0 % (0.0-4.3) 09/06/20 04:58 Baso % (Auto) 0.0 % (0.0-1.8) 09/06/20 04:58 Lymph # (Auto) 1.5 K/mm3 (1.2-5.4) 09/06/20 04:58 [place] # (Auto) 0.7 K/mm3 (0.0-0.8) 09/06/20 04:58 Eos # (Auto) 0.0 K/mm3 (0.0-0.4) 09/06/20 04:58 Baso # (Auto) 0.0 K/mm3 (0.0-0.1) 09/06/20 04:58 Seg Neutrophils % 87.0 % (40.0-70.0) H 09/06/20 04:58 Seg Neutrophils # 15.1 K/mm3 (1.8-7.7) H 09/06/20 04:58 PT 13.4 Sec. (12.2-14.9) 09/06/20 04:58 INR 1.04 (0.87-1.13) 09/06/20 04:58 D-Dimer 98.05 ng/mlDDU (0-234) 09/04/20 22:34 Sodium 138 mmol/L (137-145) 09/04/20 22:34 Potassium 4.1 mmol/L (3.6-5.0) 09/04/20 22:34 Chloride 98.2 mmol/L (98-107) 09/04/20 22:34 Carbon Dioxide 24 mmol/L (22-30) 09/04/20 22:34 Anion Gap 20 mmol/L 09/04/20 22:34 BUN 8 mg/dL (7-17) 09/04/20 22:34 Creatinine 0.6 mg/dL (0.6-1.2) 09/04/20 22:34 Estimated GFR > 60 ml/min 09/04/20 22:34 BUN/Creatinine Ratio 13 % 09/04/20 22:34 Glucose 181 mg/dL (65-100) H 09/04/20 22:34 Lactic Acid 4.20 mmol/L (0.7-2.0) H* 09/05/20 19:54 Calcium 9.4 mg/dL (8.4-10.2) 09/04/20 22:34 Total Bilirubin 0.40 mg/dL (0.1-1.2) 09/04/20 22:34 AST 24 units/L (5-40) 09/04/20 22:34 ALT 36 units/L (7-56) 09/04/20 22:34 Alkaline Phosphatase 101 units/L (35-129) 09/04/20 22:34 Total Protein 8.2 g/dL (6.3-8.2) 09/04/20 22:34 Albumin 4.4 g/dL (3.9-5) 09/04/20 22:34 Albumin/Globulin Ratio 1.2 % 09/04/20 22:34 Urine Color Yellow (Yellow) 09/04/20 23:02 Urine Turbidity Clear (Clear) 09/04/20 23:02 Urine pH 6.0 (5.0-7.0) 09/04/20 23:02 Ur Specific [place] 1.029 (1.003-1.030) 09/04/20 23:02 Urine Protein 30 mg/dl mg/dL (Negative) 09/04/20 23:02 Urine Glucose (UA) Neg mg/dL (Negative) 09/04/20 23:02 Urine Ketones Tr mg/dL (Negative) 09/04/20 23:02 Urine Blood Neg (Negative) 09/04/20 23:02 Urine Nitrite Neg (Negative) 09/04/20 23:02 Urine Bilirubin Neg (Negative) 09/04/20 23:02 Urine Urobilinogen < 2.0 mg/dL (<2.0) 09/04/20 23:02 Ur Leukocyte Esterase Sm (Negative) 09/04/20 23:02 Urine WBC (Auto) 11.0 /HPF (0.0-6.0) H 09/04/20 23:02 Urine RBC (Auto) 4.0 /HPF (0.0-6.0) 09/04/20 23:02 U Epithel Cells (Auto) 6.0 /HPF (0-13.0) 09/04/20 23:02 Urine Mucus 2+ /HPF 09/04/20 23:02 Urine HCG, Qual Negative (Negative) 09/04/20 23:02 Coronavirus (PCR) Negative (Negative) 09/05/20 08:12 Farfan/IV: Voiding Method Toilet IV Catheter Type [Right INT / Saline Lock Antecubital] Active Medications - Current Medications Current Medications: Generic Name Dose Route Start Last Admin Trade Name Freq PRN Reason Stop Dose Admin Acetaminophen 650 mg 09/05/20 02:52 Tylenol PO Q4H PRN Pain MILD(1-3)/Fever >100.5/SHAH Albuterol/Ipratropium 1 ampul 09/05/20 08:00 09/06/20 07:10 Duoneb *Not For Prn Use* IH Not Given Q6HRT DELMY Azithromycin 500 mg 09/06/20 10:00 Zithromax PO 09/09/20 10:01 QDAY DELMY Enoxaparin Sodium 40 mg 09/05/20 22:00 09/05/20 22:54 Enoxaparin SUB-Q 40 mg QDAY@2200 DELMY Administration Protocol Sodium Chloride 1,000 mls @ 100 mls/hr 09/05/20 02:15 09/06/20 05:49 Nacl 0.9% 1000 Ml IV 100 mls/hr DIRECT DELMY Administration Ceftriaxone Sodium 2 gm in 100 mls @ 200 mls/hr 09/05/20 10:00 09/05/20 11:49 Rocephin/Ns 2 Gm/100 Ml IV 200 mls/hr Q24HR DELMY Administration Protocol Magnesium Hydroxide 30 ml 09/05/20 02:52 Milk Of Magnesia PO Q4H PRN Constipation Methylprednisolone Sodium Succinate 40 mg 09/05/20 06:00 09/06/20 05:49 Solu-Medrol IV 40 mg Q8HR DELMY Administration Morphine Sulfate 2 mg 09/05/20 02:52 Morphine IV Q4H PRN Pain, Moderate (4-6) Ondansetron HCl 4 mg 09/05/20 02:52 Zofran IV Q8H PRN Nausea And Vomiting Sodium Chloride 10 ml 09/05/20 10:00 09/05/20 22:55 Sodium Chloride Flush Syringe 10 Ml IV 10 ml BID DELMY Administration Sodium Chloride 10 ml 09/05/20 02:52 09/05/20 14:10 Sodium Chloride Flush Syringe 10 Ml IV 10 ml PRN PRN Administration LINE FLUSH
[2020-09-06 08:03] LABS: BUN/Creatinine Ratio 18
[2020-09-06] MEDS ORDERED: AZITHROMYCIN 250 MG TAB PO SCH (10:00)
[2020-09-06] MEDS: hydrALAZINE 25 MG TAB PO SCH ×3 (10:15→21:41)
[2020-09-06] MEDS: cefTRIAXone/NS 2 GM/100 ML 2 GM/100 ML BAG IV SCH (10:15)
[2020-09-06] MEDS ORDERED: FLU VACC QUAD 2020-2021 (6 months +)/PF 60 0.5 ML SYRINGE IM ONE (12:00)
--- NOTE | 2020-09-06 13:28 | Progress Note ---
Assessment and Plan Cultures: COVID-19 negative A/P: 19-year-old female past medical history morbid obesity, asthma admitted as Covid PUI, found to have multifocal pneumonia #Multifocal pneumonia: Covid testing negative, elevated white count. Concern for bacterial pneumonia. Follow-up procalcitonin, continue antibiotics. #Morbid obesity #Asthma: Steroids per primary Recs: -Continue ceftriaxone azithromycin for now -Follow-up procalcitonin (? not done - re-ordered). -Leukocytosis may be worsened by steroids. Thank you for the consult, we will continue to follow. George Talavera MD [facility] ([facility]) O: [phone] F: [phone] Subjective Date of service: 09/06/20 Interval history: Afebrile, white count remains elevated at 17. Objective - Exam Narrative Exam: Physical Exam: Constitutional: Alert, cooperative. Mild respiratory distress, morbidly obese. Head, Ears, Nose: Normocephalic, atraumatic. External ears, nose normal Eyes: Conjunctivae/corneas clear. No icterus. No ptosis. Neck: Supple, no meningeal signs Oral: dentition fair, no thrush Cardiovascular: S1, S2 normal. Respiratory: Good air entry, clear to auscultation bilaterally GI: Soft, non-tender; bowel sounds normal. No peritoneal signs. Musculoskeletal: No pedal edema, no cyanosis. Skin: No rash or abscess Hem/Lymphatic: No palpable cervical or supraclavicular nodes. No lymphangitis Psych: Mood ok. Affect normal Neurological: Awake, alert, oriented. No gross abnormality - Constitutional Vitals: Vital Signs Temp Pulse Resp BP Pulse Ox 98.2 F 78 18 171/94 93 09/06/20 05:19 09/06/20 08:24 09/06/20 08:24 09/06/20 05:19 09/06/20 05:19 Temperature -Last 24 Hours Temperature 98.2 F Temperature 98.5 F Temperature 98.0 F - Labs CBC & Chem 7: 09/06/20 04:58 09/06/20 04:58 Labs: Abnormal lab results 09/05/20 09/06/20 09/06/20 Range/Units 19:54 04:58 04:58 WBC 17.4 H (4.5-11.0) K/mm3 Lymph % (Auto) 8.8 L (13.4-35.0) % Seg Neutrophils % 87.0 H (40.0-70.0) % Seg Neutrophils # 15.1 H (1.8-7.7) K/mm3 Creatinine 0.5 L (0.6-1.2) mg/dL Glucose 166 H (65-100) mg/dL Lactic Acid 4.20 H* (0.7-2.0) mmol/L
[2020-09-06] MEDS: ENOXAPARIN 40 MG/0.4 ML INJ SUB-Q SCH (21:41)
[2020-09-07] MEDS: hydroCHLOROthiazide 12.5 MG CAP PO SCH (10:01)
--- NOTE | 2020-09-07 15:51 | Progress Note ---
Assessment and Plan Cultures: COVID-19 negative A/P: 19-year-old female past medical history morbid obesity, asthma admitted as Covid PUI, found to have multifocal pneumonia #Multifocal pneumonia: Covid testing negative, elevated white count. Concern for bacterial pneumonia. Follow-up procalcitonin, continue antibiotics. #Morbid obesity #Asthma: Steroids per primary Recs: -Continue ceftriaxone azithromycin for now -Follow-up procalcitonin (? not done - re-ordered). Still no result. -Leukocytosis may be worsened by steroids. Dr. Jefferson taking over tomorrow Thank you for the consult, we will continue to follow. George Talavera MD [facility] ([facility]) O: [phone] F: [phone] Subjective Date of service: 09/07/20 Interval history: Afebrile, white count remains elevated at 17.4. Objective - Exam Narrative Exam: Physical Exam: Constitutional: Alert, cooperative. Mild respiratory distress, morbidly obese. Head, Ears, Nose: Normocephalic, atraumatic. External ears, nose normal Eyes: Conjunctivae/corneas clear. No icterus. No ptosis. Neck: Supple, no meningeal signs Oral: dentition fair, no thrush Cardiovascular: S1, S2 normal. Respiratory: Good air entry, clear to auscultation bilaterally GI: Soft, non-tender; bowel sounds normal. No peritoneal signs. Musculoskeletal: No pedal edema, no cyanosis. Skin: No rash or abscess Hem/Lymphatic: No palpable cervical or supraclavicular nodes. No lymphangitis Psych: Mood ok. Affect normal Neurological: Awake, alert, oriented. No gross abnormality - Constitutional Vitals: Vital Signs Temp Pulse Resp BP Pulse Ox 97.6 F 69 22 126/77 91 09/07/20 11:44 09/07/20 11:44 09/07/20 11:44 09/07/20 11:44 09/07/20 11:44 Temperature -Last 24 Hours Temperature 97.6 F Temperature 97.7 F - Labs CBC & Chem 7: 09/06/20 04:58 09/06/20 04:58
[2020-09-07] MEDS ORDERED: ALBUTEROL 2.5 MG/3 ML NEBU IH PRN (16:40)
[2020-09-07] MEDS ORDERED: hydrALAZINE 10 MG TAB PO PRN (16:41)
[2020-09-07] MEDS ORDERED: ONDANSETRON 4 MG/2 ML INJ IV PRN (16:48)
[2020-09-07] MEDS ORDERED: ACETAMINOPHEN 325 MG TAB PO PRN (16:48)
[2020-09-07] MEDS: cefTRIAXone/NS 2 GM/100 ML 2 GM/100 ML BAG IV SCH (17:47)
[2020-09-07] MEDS: AZITHROMYCIN 250 MG TAB PO SCH (17:47)
[2020-09-07] MEDS: IPRATROPIUM/ALBUTEROL SULFATE 3 ML AMPUL.NEB IH SCH (21:02)
[2020-09-07] MEDS: ENOXAPARIN 40 MG/0.4 ML INJ SUB-Q SCH (21:50)
[2020-09-07] MEDS: methylPREDNISolone Sod Succinate 40 MG/1 ML INJ IV SCH (21:50)
[2020-09-08] MEDS: IPRATROPIUM/ALBUTEROL SULFATE 3 ML AMPUL.NEB IH SCH ×4 (02:29→21:29)
[2020-09-08] MEDS: AZITHROMYCIN 250 MG TAB PO SCH (10:38)
[2020-09-08] MEDS: hydroCHLOROthiazide 12.5 MG CAP PO SCH (10:38)
[2020-09-08] MEDS: methylPREDNISolone Sod Succinate 40 MG/1 ML INJ IV SCH (10:38)
--- NOTE | 2020-09-08 12:46 | Progress Note ---
Assessment and Plan Assessment and plan: --PUI; COVID-19 test negative --Acute asthma exacerbation Current Visit: Yes Status: Acute Plan to address problem: Oxygen titrate O2 sats to more than 90% , nebulizers IV steroids , IV antibiotics , supportive care --Multifocal pneumonia ; present on admission Current Visit: Yes Status: Acute Plan to address problem: Continue empiric IV antibiotics. Follow cultures COVID-19 test negative --Sepsis due to multifocal pneumonia; Current Visit: Yes Status: Acute . Plan to address problem: Leukocytosis, tachycardia, pneumonia and lactic acidosis --Lactic acidosis Current Visit: Yes Status: Acute Plan to address problem: Possibly secondary to the underlying infection. Closely monitor, treat the underlying cause -- Morbid obesity with BMI of 50.0-59.9, adult Current Visit: Yes Status: Acute Plan to address problem: Patient needs dietary modification Exercise as tolerated and weight reduction When medically stable -- DVT prophylaxis Current Visit: Yes Status: Acute Plan to address problem: Placed on subcutaneous Lovenox. --Full code status Current Visit: Yes Status: Acute Closely monitor the patient and adjust management as needed Ambulate as tolerated, Evaluate for home oxygen Discharge home tomorrow if stable Plan of care reviewed with the patient and her nurse Ambulate as tolerated History Interval history: I have seen and examined the patient at the bedside Patient's chart and medications reviewed Patient continues to have mild shortness of breath and cough On IV antibiotics and supportive care Vital signs noted Hospitalist Physical - Constitutional Vitals: Temp Pulse Resp BP Pulse Ox 98.6 F 92 H 20 154/100 91 09/08/20 03:30 09/08/20 03:30 09/08/20 03:30 09/08/20 03:30 09/08/20 03:30 General appearance: Present: no acute distress, well-nourished, obese (Morbidly obese) - EENT Eyes: Present: PERRL, EOM intact - Neck Neck: Present: supple, normal ROM - Respiratory Respiratory effort: normal Respiratory: bilateral: diminished, rhonchi, negative: rales, wheezing - Cardiovascular Rhythm: regular Heart Sounds: Present: S1 & S2 - Extremities Extremities: no ischemia, No edema - Abdominal General gastrointestinal: soft, non-tender - Integumentary Integumentary: Present: clear, warm - Psychiatric Psychiatric: appropriate mood/affect, cooperative - Neurologic Neurologic: moves all extremities Results - Labs CBC & Chem 7: 09/06/20 04:58 09/06/20 04:58 Labs: Laboratory Last Values WBC 17.4 K/mm3 (4.5-11.0) H 09/06/20 04:58 RBC 4.88 M/mm3 (3.65-5.03) 09/06/20 04:58 Hgb 14.0 gm/dl (10.1-14.3) 09/06/20 04:58 Hct 42.7 % (30.3-42.9) 09/06/20 04:58 MCV 88 fl (79-97) 09/06/20 04:58 MCH 29 pg (28-32) 09/06/20 04:58 MCHC 33 % (30-34) 09/06/20 04:58 RDW 13.4 % (13.2-15.2) 09/06/20 04:58 Plt Count 331 K/mm3 (140-440) 09/06/20 04:58 Lymph % (Auto) 8.8 % (13.4-35.0) L 09/06/20 04:58 [place] % (Auto) 4.2 % (0.0-7.3) 09/06/20 04:58 Eos % (Auto) 0.0 % (0.0-4.3) 09/06/20 04:58 Baso % (Auto) 0.0 % (0.0-1.8) 09/06/20 04:58 Lymph # (Auto) 1.5 K/mm3 (1.2-5.4) 09/06/20 04:58 [place] # (Auto) 0.7 K/mm3 (0.0-0.8) 09/06/20 04:58 Eos # (Auto) 0.0 K/mm3 (0.0-0.4) 09/06/20 04:58 Baso # (Auto) 0.0 K/mm3 (0.0-0.1) 09/06/20 04:58 Seg Neutrophils % 87.0 % (40.0-70.0) H 09/06/20 04:58 Seg Neutrophils # 15.1 K/mm3 (1.8-7.7) H 09/06/20 04:58 PT 13.4 Sec. (12.2-14.9) 09/06/20 04:58 INR 1.04 (0.87-1.13) 09/06/20 04:58 D-Dimer 98.05 ng/mlDDU (0-234) 09/04/20 22:34 Sodium 141 mmol/L (137-145) 09/06/20 04:58 Potassium 4.4 mmol/L (3.6-5.0) 09/06/20 04:58 Chloride 102.8 mmol/L (98-107) 09/06/20 04:58 Carbon Dioxide 25 mmol/L (22-30) 09/06/20 04:58 Anion Gap 18 mmol/L 09/06/20 04:58 BUN 9 mg/dL (7-17) 09/06/20 04:58 Creatinine 0.5 mg/dL (0.6-1.2) L 09/06/20 04:58 Estimated GFR > 60 ml/min 09/06/20 04:58 BUN/Creatinine Ratio 18 % 09/06/20 04:58 Glucose 166 mg/dL (65-100) H 09/06/20 04:58 Lactic Acid 1.30 mmol/L (0.7-2.0) 09/08/20 00:24 Calcium 9.3 mg/dL (8.4-10.2) 09/06/20 04:58 Total Bilirubin 0.40 mg/dL (0.1-1.2) 09/04/20 22:34 AST 24 units/L (5-40) 09/04/20 22:34 ALT 36 units/L (7-56) 09/04/20 22:34 Alkaline Phosphatase 101 units/L (35-129) 09/04/20 22:34 Total Protein 8.2 g/dL (6.3-8.2) 09/04/20 22:34 Albumin 4.4 g/dL (3.9-5) 09/04/20 22:34 Albumin/Globulin Ratio 1.2 % 09/04/20 22:34 Urine Color Yellow (Yellow) 09/04/20 23:02 Urine Turbidity Clear (Clear) 09/04/20 23:02 Urine pH 6.0 (5.0-7.0) 09/04/20 23:02 Ur Specific [place] 1.029 (1.003-1.030) 09/04/20 23:02 Urine Protein 30 mg/dl mg/dL (Negative) 09/04/20 23:02 Urine Glucose (UA) Neg mg/dL (Negative) 09/04/20 23:02 Urine Ketones Tr mg/dL (Negative) 09/04/20 23:02 Urine Blood Neg (Negative) 09/04/20 23:02 Urine Nitrite Neg (Negative) 09/04/20 23:02 Urine Bilirubin Neg (Negative) 09/04/20 23:02 Urine Urobilinogen < 2.0 mg/dL (<2.0) 09/04/20 23:02 Ur Leukocyte Esterase Sm (Negative) 09/04/20 23:02 Urine WBC (Auto) 11.0 /HPF (0.0-6.0) H 09/04/20 23:02 Urine RBC (Auto) 4.0 /HPF (0.0-6.0) 09/04/20 23:02 U Epithel Cells (Auto) 6.0 /HPF (0-13.0) 09/04/20 23:02 Urine Mucus 2+ /HPF 09/04/20 23:02 Urine HCG, Qual Negative (Negative) 09/04/20 23:02 Coronavirus (PCR) Negative (Negative) 09/05/20 08:12 Microbiology: Microbiology 09/04/20 23:02 Urine,Clean Catch Urine Culture - Final Farfan/IV: Voiding Method Toilet IV Catheter Type [Right INT / Saline Lock Antecubital] Active Medications - Current Medications Current Medications: Generic Name Dose Route Start Last Admin Trade Name Freq PRN Reason Stop Dose Admin Acetaminophen 650 mg 09/07/20 16:48 Tylenol PO Q4H PRN Pain, Mild (1-3) Albuterol 2.5 mg 09/07/20 16:40 Proventil IH Q6H PRN Shortness Of Breath Albuterol/Ipratropium 1 ampul 09/07/20 20:00 09/08/20 10:25 Duoneb *Not For Prn Use* IH 1 ampul Q6HRT DELMY Administration Azithromycin 500 mg 09/07/20 18:00 09/08/20 10:38 Zithromax PO 500 mg QDAY DELMY Administration Enoxaparin Sodium 40 mg 09/07/20 22:00 09/07/20 21:50 Enoxaparin SUB-Q 40 mg QDAY@2200 DELMY Administration Protocol Hydralazine HCl 10 mg 09/07/20 16:41 09/07/20 18:32 Apresoline PO 10 mg Q4H PRN Administration Hypertension Hydrochlorothiazide 12.5 mg 09/07/20 10:00 09/08/20 10:38 Hctz PO 12.5 mg QDAY DELMY Administration Ceftriaxone Sodium 2 gm in 100 mls @ 200 mls/hr 09/07/20 18:00 09/07/20 17:47 Rocephin/Ns 2 Gm/100 Ml IV 200 mls/hr Q24H DELMY Administration Protocol Methylprednisolone Sodium Succinate 20 mg 09/07/20 22:00 09/08/20 10:38 Solu-Medrol IV 20 mg Q12HR DELMY Administration Ondansetron HCl 4 mg 09/07/20 16:48 Zofran IV Q4H PRN Nausea And Vomiting Nutrition/Malnutrition Assess - Dietary Evaluation Nutrition/Malnutrition Findings: Nutrition Notes Start: 09/06/20 11:50 Freq: Status: Active Protocol: Document 09/06/20 11:50 AT (Rec: 09/06/20 11:53 AT [id number]) Co-Sign 09/06/20 11:50 Nutrition Notes Need for Assessment 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 Gerardo score of 22. Spoke with RN, RN notes pt is eating most of her meals with the exception of today 's breakfast due to food preferences. RN took food preferences and does not anticipate any problems with consumption. Nutrition Intervention Revisit per MD consult or patient Sign Off request:
--- NOTE | 2020-09-08 12:47 | Progress Note ---
Assessment and Plan Assessment and plan: --PUI; COVID-19 test negative --Acute asthma exacerbation Current Visit: Yes Status: Acute Plan to address problem: Oxygen titrate O2 sats to more than 90% , nebulizers IV steroids , IV antibiotics , supportive care --Multifocal pneumonia ; present on admission Current Visit: Yes Status: Acute Plan to address problem: Continue empiric IV antibiotics. Follow cultures COVID-19 test negative --Sepsis secondary to multifocal pneumonia Current Visit: Yes Status: Acute Plan to address problem: Leukocytosis, tachycardia, pneumonia continue current antibiotics Follow cultures, ID following --Lactic acidosis Current Visit: Yes Status: Acute Plan to address problem: Possibly secondary to the underlying infection. Closely monitor, treat the underlying cause -- Morbid obesity with BMI of 50.0-59.9, adult Current Visit: Yes Status: Acute Plan to address problem: Patient needs dietary modification Exercise as tolerated and weight reduction When medically stable -- DVT prophylaxis Current Visit: Yes Status: Acute Plan to address problem: Placed on subcutaneous Lovenox. --Full code status Current Visit: Yes Status: Acute Closely monitor the patient and adjust management as needed Ambulate as tolerated Evaluate for home oxygen 09/07/2020; patient continues to have mild shortness of breath On nebulizers, IV steroids, IV antibiotics ID following, possible discharge in 1 to 2 days if stable Home oxygen evaluated resting room air 95% ambulatory room air 91% History Interval history: I have seen and examined the patient at the bedside Patient's chart and medications reviewed Patient continues to have shortness of breath and mild cough Afebrile vital signs reviewed Hospitalist Physical - Constitutional Vitals: Temp Pulse Resp BP Pulse Ox 98.6 F 92 H 20 154/100 91 09/08/20 03:30 09/08/20 03:30 09/08/20 03:30 09/08/20 03:30 09/08/20 03:30 General appearance: Present: mild distress, well-nourished, obese (Morbidly obese) - EENT Eyes: Present: PERRL - Neck Neck: Present: supple, normal ROM - Respiratory Respiratory effort: normal Respiratory: bilateral: diminished, rhonchi, negative: rales, wheezing - Cardiovascular Rhythm: regular Heart Sounds: Present: S1 & S2 - Extremities Extremities: no ischemia, No edema - Abdominal General gastrointestinal: soft, non-tender, non-distended, normal bowel sounds - Integumentary Integumentary: Present: clear, warm - Psychiatric Psychiatric: appropriate mood/affect, cooperative - Neurologic Neurologic: moves all extremities Results - Labs CBC & Chem 7: 09/06/20 04:58 09/06/20 04:58 Labs: Laboratory Last Values WBC 17.4 K/mm3 (4.5-11.0) H 09/06/20 04:58 RBC 4.88 M/mm3 (3.65-5.03) 09/06/20 04:58 Hgb 14.0 gm/dl (10.1-14.3) 09/06/20 04:58 Hct 42.7 % (30.3-42.9) 09/06/20 04:58 MCV 88 fl (79-97) 09/06/20 04:58 MCH 29 pg (28-32) 09/06/20 04:58 MCHC 33 % (30-34) 09/06/20 04:58 RDW 13.4 % (13.2-15.2) 09/06/20 04:58 Plt Count 331 K/mm3 (140-440) 09/06/20 04:58 Lymph % (Auto) 8.8 % (13.4-35.0) L 09/06/20 04:58 [place] % (Auto) 4.2 % (0.0-7.3) 09/06/20 04:58 Eos % (Auto) 0.0 % (0.0-4.3) 09/06/20 04:58 Baso % (Auto) 0.0 % (0.0-1.8) 09/06/20 04:58 Lymph # (Auto) 1.5 K/mm3 (1.2-5.4) 09/06/20 04:58 [place] # (Auto) 0.7 K/mm3 (0.0-0.8) 09/06/20 04:58 Eos # (Auto) 0.0 K/mm3 (0.0-0.4) 09/06/20 04:58 Baso # (Auto) 0.0 K/mm3 (0.0-0.1) 09/06/20 04:58 Seg Neutrophils % 87.0 % (40.0-70.0) H 09/06/20 04:58 Seg Neutrophils # 15.1 K/mm3 (1.8-7.7) H 09/06/20 04:58 PT 13.4 Sec. (12.2-14.9) 09/06/20 04:58 INR 1.04 (0.87-1.13) 09/06/20 04:58 D-Dimer 98.05 ng/mlDDU (0-234) 09/04/20 22:34 Sodium 141 mmol/L (137-145) 09/06/20 04:58 Potassium 4.4 mmol/L (3.6-5.0) 09/06/20 04:58 Chloride 102.8 mmol/L (98-107) 09/06/20 04:58 Carbon Dioxide 25 mmol/L (22-30) 09/06/20 04:58 Anion Gap 18 mmol/L 09/06/20 04:58 BUN 9 mg/dL (7-17) 09/06/20 04:58 Creatinine 0.5 mg/dL (0.6-1.2) L 09/06/20 04:58 Estimated GFR > 60 ml/min 09/06/20 04:58 BUN/Creatinine Ratio 18 % 09/06/20 04:58 Glucose 166 mg/dL (65-100) H 09/06/20 04:58 Lactic Acid 1.30 mmol/L (0.7-2.0) 09/08/20 00:24 Calcium 9.3 mg/dL (8.4-10.2) 09/06/20 04:58 Total Bilirubin 0.40 mg/dL (0.1-1.2) 09/04/20 22:34 AST 24 units/L (5-40) 09/04/20 22:34 ALT 36 units/L (7-56) 09/04/20 22:34 Alkaline Phosphatase 101 units/L (35-129) 09/04/20 22:34 Total Protein 8.2 g/dL (6.3-8.2) 09/04/20 22:34 Albumin 4.4 g/dL (3.9-5) 09/04/20 22:34 Albumin/Globulin Ratio 1.2 % 09/04/20 22:34 Urine Color Yellow (Yellow) 09/04/20 23:02 Urine Turbidity Clear (Clear) 09/04/20 23:02 Urine pH 6.0 (5.0-7.0) 09/04/20 23:02 Ur Specific [place] 1.029 (1.003-1.030) 09/04/20 23:02 Urine Protein 30 mg/dl mg/dL (Negative) 09/04/20 23:02 Urine Glucose (UA) Neg mg/dL (Negative) 09/04/20 23:02 Urine Ketones Tr mg/dL (Negative) 09/04/20 23:02 Urine Blood Neg (Negative) 09/04/20 23:02 Urine Nitrite Neg (Negative) 09/04/20 23:02 Urine Bilirubin Neg (Negative) 09/04/20 23:02 Urine Urobilinogen < 2.0 mg/dL (<2.0) 09/04/20 23:02 Ur Leukocyte Esterase Sm (Negative) 09/04/20 23:02 Urine WBC (Auto) 11.0 /HPF (0.0-6.0) H 09/04/20 23:02 Urine RBC (Auto) 4.0 /HPF (0.0-6.0) 09/04/20 23:02 U Epithel Cells (Auto) 6.0 /HPF (0-13.0) 09/04/20 23:02 Urine Mucus 2+ /HPF 09/04/20 23:02 Urine HCG, Qual Negative (Negative) 09/04/20 23:02 Coronavirus (PCR) Negative (Negative) 09/05/20 08:12 Microbiology: Microbiology 09/04/20 23:02 Urine,Clean Catch Urine Culture - Final Farfan/IV: Voiding Method Toilet IV Catheter Type [Right INT / Saline Lock Antecubital] Active Medications - Current Medications Current Medications: Generic Name Dose Route Start Last Admin Trade Name Freq PRN Reason Stop Dose Admin Acetaminophen 650 mg 09/07/20 16:48 Tylenol PO Q4H PRN Pain, Mild (1-3) Albuterol 2.5 mg 09/07/20 16:40 Proventil IH Q6H PRN Shortness Of Breath Albuterol/Ipratropium 1 ampul 09/07/20 20:00 09/08/20 10:25 Duoneb *Not For Prn Use* IH 1 ampul Q6HRT DELMY Administration Azithromycin 500 mg 09/07/20 18:00 09/08/20 10:38 Zithromax PO 500 mg QDAY DELMY Administration Enoxaparin Sodium 40 mg 09/07/20 22:00 09/07/20 21:50 Enoxaparin SUB-Q 40 mg QDAY@2200 DELMY Administration Protocol Hydralazine HCl 10 mg 09/07/20 16:41 09/07/20 18:32 Apresoline PO 10 mg Q4H PRN Administration Hypertension Hydrochlorothiazide 12.5 mg 09/07/20 10:00 09/08/20 10:38 Hctz PO 12.5 mg QDAY DELMY Administration Ceftriaxone Sodium 2 gm in 100 mls @ 200 mls/hr 09/07/20 18:00 09/07/20 17:47 Rocephin/Ns 2 Gm/100 Ml IV 200 mls/hr Q24H DELMY Administration Protocol Methylprednisolone Sodium Succinate 20 mg 09/07/20 22:00 09/08/20 10:38 Solu-Medrol IV 20 mg Q12HR DELMY Administration Ondansetron HCl 4 mg 09/07/20 16:48 Zofran IV Q4H PRN Nausea And Vomiting Nutrition/Malnutrition Assess - Dietary Evaluation Nutrition/Malnutrition Findings: Nutrition Notes Start: 09/06/20 11:50 Freq: Status: Active Protocol: Document 09/06/20 11:50 AT (Rec: 09/06/20 11:53 AT [id number]) Co-Sign 09/06/20 11:50 MK Nutrition Notes Need for Assessment 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 Gerardo score of 22. Spoke with RN, RN notes pt is eating most of her meals with the exception of today 's breakfast due to food preferences. RN took food preferences and does not anticipate any problems with consumption. Nutrition Intervention Revisit per MD consult or patient Sign Off request:
[2020-09-08] MEDS: cefTRIAXone/NS 2 GM/100 ML 2 GM/100 ML BAG IV SCH (17:48)
[2020-09-08] MEDS ORDERED: FUROSEMIDE 40 MG/4 ML INJ IV ONE (18:30)
[2020-09-08] MEDS: ENOXAPARIN 40 MG/0.4 ML INJ SUB-Q SCH (22:31)
[2020-09-08] MEDS: predniSONE 20 MG TAB PO SCH (22:31)
[2020-09-09] MEDS: IPRATROPIUM/ALBUTEROL SULFATE 3 ML AMPUL.NEB IH SCH ×3 (07:23→17:17)
[2020-09-09] MEDS: AZITHROMYCIN 250 MG TAB PO SCH (10:48)
[2020-09-09] MEDS: predniSONE 20 MG TAB PO SCH (10:48)
[2020-09-09] MEDS: hydroCHLOROthiazide 12.5 MG CAP PO SCH (10:48)
--- NOTE | 2020-09-09 12:30 | Discharge Summary ---
Providers - Providers Date of Admission: 09/05/20 02:35 Date of discharge: 09/09/20 Attending physician: JUAN STINSON 09/05/20 02:52 Consult to Physician [CONS] Routine Comment: Consulting Provider: GUILLE BARKLEY Physician Instructions: Reason For Exam: Asthma Exacerbation, Pneumonia R/O COVID Primary care physician: SYRUP MIXER ASSISTANT Hospitalization Condition: Stable Disposition: DC-01 TO HOME OR SELFCARE Time spent for discharge: 32 min Core Measure Documentation - Palliative Care Palliative Care/ Comfort Measures: Not Applicable - Core Measures Any of the following diagnoses?: none Exam - Constitutional Vitals: Temp Pulse Resp BP Pulse Ox 97.3 F L 100 H 16 146/93 92 09/09/20 03:59 09/09/20 03:59 09/09/20 03:59 09/09/20 03:59 09/09/20 03:59 General appearance: Present: no acute distress, well-nourished - EENT Eyes: Present: PERRL, EOM intact - Neck Neck: Present: supple, normal ROM - Respiratory Respiratory effort: normal Respiratory: bilateral: diminished, negative: rales, rhonchi, wheezing - Cardiovascular Rhythm: regular Heart Sounds: Present: S1 & S2 - Extremities Extremities: no ischemia, No edema - Abdominal General gastrointestinal: Present: soft, non-tender, non-distended, normal bowel sounds - Integumentary Integumentary: Present: clear, warm - Musculoskeletal Musculoskeletal: strength equal bilaterally - Psychiatric Psychiatric: appropriate mood/affect, cooperative - Neurologic Neurologic: moves all extremities Plan Activity: no restrictions Diet: regular Additional Instructions: Advised diet modification exercise as tolerated and weight reduction when medically stable. If you have worsening symptoms contact MD or go to emergency room Follow up with: PRIMARY CARE,MD [Primary Care Provider] - 3-5 Days
[2020-09-09 13:17] VITALS: BP 164/93
== END 2020-09-09 14:59 | disposition home or self-care (01) | DRG 871 ==
LOC: ED 18:12 → 3A 09-05 02:35 → UNDODISIN 09-06 21:15
PROVIDERS: ADMIT Internal Medicine Geriatric Medicine; ATTEND Internal Medicine
DX: A41.9 Sepsis, unspecified organism (principal); J18.9 Pneumonia, unspecified organism; E87.2 Acidosis; J45.901 Unspecified asthma with (acute) exacerbation; Z68.43 Body mass index [BMI] 50.0-59.9, adult; E66.01 Morbid (severe) obesity due to excess calories; Z20.828 Contact with and (suspected) exposure to other viral communicable diseases; Z91.010 Allergy to peanuts; D72.829 Elevated white blood cell count, unspecified
CPT/HCPCS: 36415; 71045; 71275; 80048; 80053; 81001; 81025; 82140; 84145; 85025; 85379; 85610; 87086; 90686; 93005; 94640; 94644; G0378; J0456; J0696; J1100; J1650; J1940; J2920; J3475; J7030; J7050; J7512; Q9967; U0003